=== PATIENT | female | born 1950 | race Caucasian/White ===

== ENCOUNTER 2022-06-04 12:45 | Observation (INO) | payer MEDICARE, OTHER ==
[~2022-06-04] VITALS: Ht 165 cm; Wt 63.5 kg
[2022-06-04 12:45] VITALS: BP 133/115
[2022-06-04] MEDS ORDERED: NALOXONE 0.4 MG/ML 1 ML (NARCAN) VIAL ONE (12:54)
[2022-06-04] MEDS ORDERED: NALOXONE 2 MG/2 ML (NARCAN) SYR ONE (12:57)
[2022-06-04] MEDS ORDERED: NS IV 1000 ML 1,000 ML IV SCH (13:00)
[2022-06-04] MEDS ORDERED: NALOXONE 0.4 MG/ML 1 ML (NARCAN) VIAL IV ONE (13:00)
[2022-06-04 13:01] LABS: BASOPHILS # (AUTO) 0.1 10^3/uL (0.0-0.1); BASOPHILS % (AUTO) 0 % (0-10); EOSINOPHILS % (AUTO) 0 % (0-10); HEMATOCRIT 42 % (35-52); HEMOGLOBIN 14.2 g/dL (11.5-16.0); LYMPHOCYTES # (AUTO) 1.7 10^3/uL (1.0-4.0); LYMPHOCYTES % (AUTO) 7 % (12-44); MEAN CORPUSCULAR HEMOGLOBIN 30 pg (25-34); MEAN CORPUSCULAR HGB CONC 34 g/dL (32-36); MEAN CORPUSCULAR VOLUME 88 fL (80-99); MEAN PLATELET VOLUME 10.3 fL (9.0-12.2); MONOCYTES # (AUTO) 1.7 10^3/uL (0.0-1.0); MONOCYTES % (AUTO) 7 % (0-12); NEUTROPHILS # (AUTO) 20.5 10^3/uL (1.8-7.8); NEUTROPHILS % (AUTO) 85 % (42-75); PLATELET COUNT 510 10^3/uL (130-400); WHITE BLOOD COUNT 24.2 10^3/uL (4.3-11.0)
[2022-06-04 13:02] LABS: BILIRUBIN,URINE 1+ (NEGATIVE); CLARITY,URINE CLEAR; COLOR,URINE YELLOW; GLUCOSE, URINE (UA) NEGATIVE (NEGATIVE); KETONES,URINE 2+ (NEGATIVE); LEUKOCYTE ESTERASE ,URINE NEGATIVE (NEGATIVE); NITRITE,URINE NEGATIVE (NEGATIVE); PROTEIN,URINE 2+ (NEGATIVE)
[2022-06-04 13:09] LABS: AMORPHOUS SEDIMENT,UR FEW AMOR URATES /LPF; BACTERIA,URINE NEGATIVE /HPF; WBC,URINE 0-2 /HPF
[2022-06-04 13:13] LABS: LYMPHOCYTES % (MANUAL) 6 %; MONOCYTES % (MANUAL) 7 %; NEUTROPHILS % (MANUAL) 87 %
[2022-06-04 13:14] LABS: RBC MORPH NORMAL
[2022-06-04 13:16] LABS: ALBUMIN 3.9 GM/DL (3.2-4.5); POTASSIUM 3.4 MMOL/L (3.6-5.0)
[2022-06-04 13:17] LABS: CALCIUM 10.8 MG/DL (8.5-10.1)
[2022-06-04 13:19] LABS: TOTAL PROTEIN 8.2 GM/DL (6.4-8.2)
[2022-06-04 13:21] LABS: BILIRUBIN,TOTAL 0.4 MG/DL (0.1-1.0)
[2022-06-04 13:22] LABS: CREATININE SERUM 1.22 MG/DL (0.60-1.30)
[2022-06-04 13:26] LABS: FIBRIN DEGRADATION PRODUCTS 1.96 UG/ML (0.00-0.49); INR 1.1 (0.8-1.4); PROTHROMBIN TIME PATIENT 14.6 SEC (12.2-14.7)
--- NOTE | 2022-06-04 13:36 | Diagnostic Imaging Report ---
PROCEDURE: CT cervical spine without contrast. TECHNIQUE: Multiple contiguous axial images were obtained through the cervical spine without the use of intravenous contrast. Sagittal and coronal reformations were then performed. Auto Exposure Controls were utilized during the CT exam to meet ALARA standards for radiation dose reduction. INDICATION: Unresponsive, found down. COMPARISON: No prior studies are available for comparison. FINDINGS: Curvature of the cervical spine is normal. There is minimal retrolisthesis of C3 on C4. Multilevel degenerative disc disease is noted with significant disc space narrowing and marginal spurring at all levels. No fractures identified. The prevertebral tissues are normal. Odontoid is intact. IMPRESSION: Cervical spondylosis. No acute bony abnormality is detected. Dictated by: Dictated on workstation # [id number]
--- NOTE | 2022-06-04 13:37 | Diagnostic Imaging Report ---
Indication: Unresponsive. Time of Exam: 1:31 PM No prior studies are available for comparison. The heart is enlarged. There is central congestion but no overt failure. Right hemidiaphragm is elevated. No effusion or pneumothorax is identified. IMPRESSION: Cardiomegaly with central congestion. Dictated by: Dictated on workstation # [id number]
--- NOTE | 2022-06-04 13:48 | Diagnostic Imaging Report ---
Clinical Indication: Patient is unresponsive. Exam: Axial CT scan of the brain without IV contrast with coronal and sagittal reformatted images. Auto Exposure Controls were utilized during the CT exam to meet ALARA standards for radiation dose reduction. Comparison: None Findings: There are large areas of loss of olmedo-white matter distinction and predominantly diffuse low-density involving both cerebral hemispheres in the bilateral ACAs, bilateral MCA regions. There is involvement of the bilateral basal ganglia regions. There is current sparing of the bilateral thalami, some portions of the parietal lobe, occipital lobe and most of the temporal lobe regions. There is no involvement of the cerebellar hemispheres. There is streak artifact limiting evaluation of the brainstem. There is dense vessel appearance involving the anterior circulation [place] of [place]anna which may be related to relative diffuse low-density of the brain parenchyma. There is loss of brain parenchymal sulci. There is no intra-parenchymal hemorrhage, brain herniation or midline shift. There is no hydrocephalus. Basal cisterns are unremarkable. Extracranial soft tissues, skull, and orbits are unremarkable. Paranasal sinuses and mastoid air cells are clear. IMPRESSION: There are findings consistent with acute global hypoxic ischemic large infarcts involving both cerebral hemispheres predominantly involving the FRANCIS and MCA distributions. There is associated mild cerebral edema with loss of sulci noted in these areas. There is no intracranial hemorrhage, brain herniation or midline shift. Results of this report were discussed with Dr. Rajiv James via the telephone on 06/04/2022 1335 hours. Dictated by: Dictated on workstation # [id number]
--- NOTE | 2022-06-04 14:11 | ED Neurological Problem ---
General Chief Complaint: Unresponsive Stated Complaint: CONFUSION Nursing Triage Note: PT PRESENTS TO ED VIA EMS FOR UNRESPONSIVENESS. ACCORDING TO EMS PT FAMILY REPORTS PT HAS BEEN SICK FOR TWO DAYS. EMS REPORTS PT FAMILY STATES THEY HEARD HER SNORING LAST NIGHT AND ASSUMED SHE WAS SLEEPING. LAST KNOWN WELL TIME IS YESTERDAY AROUND 1200. Source: family, EMS Exam Limitations: no limitations History of Present Illness Date Seen by Provider: Jun 04, 2022 Time Seen by Provider: 12:46 Initial Comments This is 72-year-old woman presents to the emergency room via EMS after being found unresponsive by family members at home. Last known well time was sometime yesterday. She had not been feeling well for couple of days. On arrival she is responsive somewhat to pressure or painful stimuli and is maintaining sonorous respirations. She did have a bottle of hydrocodone in the home. Other than not feeling well, she was known to be at her baseline around noon yesterday. There are areas of abrasion and redness on her right side including on the ear and around the clavicle. There is no witnessed trauma. She was hypothermic with a temperature of 33.3 rectally during initial assessment. She has some posturing in extension. There is emesis on her clothing and she has coarse right-sided breath sounds. Allergies and Home Medications Allergies Coded Allergies: No Known Drug Allergies (Unverified , 06/04/22) Patient Home Medication List Home Medication List Reviewed: Yes Review of Systems Review of Systems Constitutional: see HPI Eyes: No Symptoms Reported Ears, Nose, Mouth, Throat: see HPI Respiratory: see HPI Cardiovascular: other (Tachycardia) Gastrointestinal: see HPI Genitourinary: no symptoms reported : No Musculoskeletal: no symptoms reported Skin: see HPI Psychiatric/Neurological: See HPI Endocrine: No Symptoms Reported Hematologic/Lymphatic: No Symptoms Reported Past Ubqppth-Xqmkvs-Rdlrzt Hx Patient Social History Smoking Status: Unknown if Ever Smoked Substance use?: Unable to obtain Alcohol Use?: Unable to obtain Pt feels they are or have been: Unable to obtain Past Medical History Surgery/Hospitalization HX: No medical history available Surgeries: No (Not known) Physical Exam Vital Signs Vital Signs - First Documented 06/04/22 12:45 Temp 33.3 Pulse 128 Resp 24 B/P (MAP) 133/115 (121) Pulse Ox 96 O2 Delivery Nasal Cannula O2 Flow Rate 2.00 Capillary Refill : Greater Than 3 Seconds Height, Weight, BMI Height: '" Weight: lbs. oz. kg; 23.00 BMI Method: General Appearance: WD/WN, other (Minimally responsive) HEENT: PERRL/EOMI (Sluggish pupils) Neck: normal inspection Respiratory: rhonchi, other (Snoring respirations, occasionally tachypnea) Cardiovascular: no edema, no murmur, tachycardia Gastrointestinal: soft; No distended Extremities: normal inspection, no pedal edema Neurologic/Psychiatric: other (Minimally responsive to painful stimuli. Decerebrate posturing. Occasional seizure-like activity. No purposeful movement.) Crainal Nerves: PERRL (Sluggish pupils) Skin: cool, pallor Progress/Results/Core Measures Results/Orders Lab Results Laboratory Tests Test 06/04/22 12:51 06/04/22 12:58 06/04/22 13:43 Range/Units Urine Color YELLOW Urine Clarity CLEAR Urine pH 6.0 5-9 Urine Specific [place]den >=1.030 1.016-1.022 Urine Protein 2+ H NEGATIVE Urine Glucose (UA) NEGATIVE NEGATIVE Urine Ketones 2+ H NEGATIVE Urine Nitrite NEGATIVE NEGATIVE Urine Bilirubin 1+ H NEGATIVE Urine Urobilinogen 0.2 < = 1.0 MG/DL Urine Leukocyte Esterase NEGATIVE NEGATIVE Urine RBC (Auto) 3+ H NEGATIVE Urine RBC 5-10 H /HPF Urine WBC 0-2 /HPF Urine Crystals PRESENT H /LPF Urine Amorphous Sediment FEW DORIAN URATES H /LPF Urine Bacteria NEGATIVE /HPF Urine Casts PRESENT /LPF Urine Hyaline Casts 2-5 H /LPF Urine Mucus NEGATIVE /LPF Urine Culture Indicated NO White Blood Count 24.2 H 4.3-11.0 10^3/uL Red Blood Count 4.81 3.80-5.11 10^6/uL Hemoglobin 14.2 11.5-16.0 g/dL Hematocrit 42 35-52 % Mean Corpuscular Volume 88 80-99 fL Mean Corpuscular Hemoglobin 30 25-34 pg Mean Corpuscular Hemoglobin Concent 34 32-36 g/dL Red Cell Distribution Width 14.0 10.0-14.5 % Platelet Count 510 H 130-400 10^3/uL Mean Platelet Volume 10.3 9.0-12.2 fL Immature Granulocyte % (Auto) 1 % Neutrophils (%) (Auto) 85 H 42-75 % Lymphocytes (%) (Auto) 7 L 12-44 % Monocytes (%) (Auto) 7 0-12 % Eosinophils (%) (Auto) 0 0-10 % Basophils (%) (Auto) 0 0-10 % Neutrophils # (Auto) 20.5 H 1.8-7.8 10^3/uL Lymphocytes # (Auto) 1.7 1.0-4.0 10^3/uL Monocytes # (Auto) 1.7 H 0.0-1.0 10^3/uL Eosinophils # (Auto) 0.0 0.0-0.3 10^3/uL Basophils # (Auto) 0.1 0.0-0.1 10^3/uL Immature Granulocyte # (Auto) 0.2 H 0.0-0.1 10^3/uL Neutrophils % (Manual) 87 % Lymphocytes % (Manual) 6 % Monocytes % (Manual) 7 % Blood Morphology Comment NORMAL Prothrombin Time 14.6 12.2-14.7 SEC INR Comment 1.1 0.8-1.4 Activated Partial Thromboplast Time 29 24-35 SEC D-Dimer 1.96 H 0.00-0.49 UG/ML Sodium Level 142 135-145 MMOL/L Potassium Level 3.4 L 3.6-5.0 MMOL/L Chloride Level 100 98-107 MMOL/L Carbon Dioxide Level 23 21-32 MMOL/L Anion Gap 19 H 5-14 MMOL/L Blood Urea Nitrogen 29 H 7-18 MG/DL Creatinine 1.22 0.60-1.30 MG/DL Estimat Glomerular Filtration Rate 48 BUN/Creatinine Ratio 24 Glucose Level 183 H 70-105 MG/DL Calcium Level 10.8 H 8.5-10.1 MG/DL Corrected Calcium 10.9 H 8.5-10.1 MG/DL Total Bilirubin 0.4 0.1-1.0 MG/DL Aspartate Amino Transf (AST/SGOT) 82 H 5-34 U/L Alanine Aminotransferase (ALT/SGPT) 41 0-55 U/L Alkaline Phosphatase 99 40-136 U/L Troponin I 32.865 *H <0.028 NG/ML Total Protein 8.2 6.4-8.2 GM/DL Albumin 3.9 3.2-4.5 GM/DL Influenza Type A (RT-PCR) Not Detected Not Detecte Influenza Type B (RT-PCR) Not Detected Not Detecte SARS-CoV-2 RNA (RT-PCR) Not Detected Not Detecte My Orders Orders - RAJIV VAZQUEZ MD Cbc With Automated Diff (06/04/22 12:48) Protime With Inr (06/04/22 12:48) Partial Thromboplastin Time (06/04/22 12:48) Comprehensive Metabolic Panel (06/04/22 12:48) Fibrin Degradation Products (06/04/22 12:48) Troponin I Mill[place] (06/04/22 12:48) Ua Culture If Indicated (06/04/22 12:48) Chest 1 View, Ap/Pa Only (06/04/22 12:48) Catheter(Urinary) Insert & Ass 03,15 (06/04/22 12:48) Ekg Tracing (06/04/22 12:48) Nothing By Mouth (06/04/22 Lunch) Accucheck Stat ONCE (06/04/22 12:48) Ed Iv/Invasive Line Start (06/04/22 12:48) Vital Signs Stroke Patient Q15M (06/04/22 12:48) Ct Head Wo-R/O Stroke (06/04/22 12:48) O2 (06/04/22 12:48) Monitor-Rhythm Ecg Trace Only (06/04/22 12:48) Dysphagia Screening Tool Q10MX1 (06/04/22 12:48) Ct Cervical Spine Wo (06/04/22 12:50) Ns Iv 1000 Ml (Sodium Chloride 0.9%) (06/04/22 13:00) Naloxone Injection (Narcan Injection) (06/04/22 13:00) Covid 19 Inhouse Test (06/04/22 12:51) Influenza A And B By Pcr (06/04/22 12:51) Naloxone Injection (Narcan Injection) (06/04/22 12:54) Naloxone Injection (Narcan Injection) (06/04/22 12:57) Manual Differential (06/04/22 12:58) Morphine Injection (Morphine Injection (06/04/22 14:26) Ed Admission (Communication) (06/04/22 14:52) Medications Given in ED Vital Signs/I&O 06/04/22 06/04/22 12:45 12:50 Temp 33.3 Pulse 128 Resp 24 B/P (MAP) 133/115 (121) Pulse Ox 96 100 O2 Delivery Nasal Cannula Nasal Cannula O2 Flow Rate 2.00 2.00 Blood Pressure Mean: 121 Progress Progress Note : Time: 14:47 Progress Note Patient did not respond to serial doses of narcan 0.4 mg, 1 mg and 1 mg. Patient was maintaining respiratory status with nasal trumpet without intubation. CT was obtained demonstrating severe bilateral hypoxic brain injury. I discussed the situation with Dr. Walden, stroke neurologist at [facility]. Prognosis is extremely poor in that this injury is likely incompatible with life. If she were to survive, it is estimated she would have severe persistent brain damage without any higher brain function. Per family, she would not want any aggressive care in this circumstance. Comfort care is being pursued. Patient initially received Versed 2 mg IV when she was having brief seizure-like a ctivity. She later appeared to be in pain and received morphine 4 mg IV. Family is now at bedside with the patient. Case was discussed with Dr. Huitron who is agreeable to admission for comfort care. Diagnostic Imaging Diagonstic Imaging: CT Plain Films/CT/US/NM/MRI: head Comments NAME: ELIZABETH REAVES [facility] REC#: [id number] PT STATUS: REG ER : 1950 PHYSICIAN: RAJIV VAZQUEZ MD ADMIT DATE: 06/04/22/ER Draft Date of Exam:06/04/22 CT HEAD WO-R/O STROKE Clinical Indication: Patient is unresponsive. Exam: Axial CT scan of the brain without IV contrast with coronal and sagittal reformatted images. Auto Exposure Controls were utilized during the CT exam to meet ALARA standards for radiation dose reduction. Comparison: None Findings: There are large areas of loss of olmedo-white matter distinction and predominantly diffuse low-density involving both cerebral hemispheres in the bilateral ACAs, bilateral MCA regions. There is involvement of the bilateral basal ganglia regions. There is current sparing of the bilateral thalami, some portions of the parietal lobe, occipital lobe and most of the temporal lobe regions. There is no involvement of the cerebellar hemispheres. There is streak artifact limiting evaluation of the brainstem. There is dense vessel appearance involving the anterior circulation [place] of [place] which may be related to relative diffuse low-density of the brain parenchyma. There is loss of brain parenchymal sulci. There is no intra-parenchymal hemorrhage, brain herniation or midline shift. There is no hydrocephalus. Basal cisterns are unremarkable. Extracranial soft tissues, skull, and orbits are unremarkable. Paranasal sinuses and mastoid air cells are clear. IMPRESSION: There are findings consistent with acute global hypoxic ischemic large infarcts involving both cerebral hemispheres predominantly involving the FRANCIS and MCA distributions. There is associated mild cerebral edema with loss of sulci noted in these areas. There is no intracranial hemorrhage, brain herniation or midline shift. Results of this report were discussed with Dr. Rajiv James via the telephone on 06/04/2022 1335 hours. Dictated on workstation # [id number] Dict: 06/04/22 1329 Trans: 06/04/22 1347 [id number] [id number] Interpreted by: JEREMIE ROMANO MD Diagonstic Imaging: Xray Plain Films/CT/US/NM/MRI: chest Comments NAME: ELIZABETH REAVES [facility] REC#: [id number] PT STATUS: ADM Onur : 1950 PHYSICIAN: RAJIV VAZQUEZ MD ADMIT DATE: 06/04/22 Signed Date of Exam:06/04/22 CHEST 1 VIEW, AP/PA ONLY Indication: Unresponsive. Time of Exam: 1:31 PM No prior studies are available for comparison. The heart is enlarged. There is central congestion but no overt failure. Right hemidiaphragm is elevated. No effusion or pneumothorax is identified. IMPRESSION: Cardiomegaly with central congestion. Dictated by: Dictated on workstation # [id number] Dict: 06/04/22 1336 Trans: 06/04/22 1603 [id number] [id number] Interpreted by: ROSSY GRAYSON MD Electronically signed by: ROSSY GRAYSON MD 06/04/22 1604 Diagonstic Imaging: CT Plain Films/CT/US/NM/MRI: c-spine Comments NAME: ELIZABETH REAVES MED REC#: [id number] PT STATUS: ADM Onur : 1950 PHYSICIAN: RAJIV VAZQUEZ MD ADMIT DATE: 06/04/22 Signed Date of Exam:06/04/22 CT CERVICAL SPINE WO PROCEDURE: CT cervical spine without contrast. TECHNIQUE: Multiple contiguous axial images were obtained through the cervical spine without the use of intravenous contrast. Sagittal and coronal reformations were then performed. Auto Exposure Controls were utilized during the CT exam to meet ALARA standards for radiation dose reduction. INDICATION: Unresponsive, found down. COMPARISON: No prior studies are available for comparison. FINDINGS: Curvature of the cervical spine is normal. There is minimal retrolisthesis of C3 on C4. Multilevel degenerative disc disease is noted with significant disc space narrowing and marginal spurring at all levels. No fractures identified. The prevertebral tissues are normal. Odontoid is intact. IMPRESSION: Cervical spondylosis. No acute bony abnormality is detected. Dictated by: Dictated on workstation # [id number] Dict: 06/04/22 1330 Trans: 06/04/22 1603 [id number] [id number] Interpreted by: ROSSY GRAYSON MD Electronically signed by: ROSSY GRAYSON MD 06/04/22 1603 Departure Communication (Admissions) Time/Spoke to Admitting Phy: 14:45 Dr. Huitron Impression Primary Impression: Hypoxic brain injury Additional Impressions: Unresponsive Elevated troponin Need for comfort care Disposition: ADMITTED INPATIENT Condition: Critical Admissions Decision to Admit Reason: Admit from ER (General) Decision to Admit/Date: Jun 04, 2022 Time/Decision to Admit Time: 14:45 RAJIV VAZQUEZ MD Jun 04, 2022 14:11
[2022-06-04] MEDS ORDERED: morphine INJ 10 MG/ML 1ML (SYR OR VIAL) IVP STA (14:26)
[2022-06-04] MEDS ORDERED: ACETAMINOPHEN 650 MG SUPP (TYLENOL) PR PRN (16:00)
[2022-06-04] MEDS ORDERED: PROMETHAZINE INJ 25 MG/ML (PHENERGAN) AMP IVP PRN (16:00)
[2022-06-04] MEDS ORDERED: RT-ALBUTEROL/IPRATROPIUM 3 ML (DUONEB) VIAL INH PRN (16:00)
[2022-06-04] MEDS ORDERED: GLYCOPYRROLATE 0.2 MG/ML (ROBINUL) 2 ML VIAL IV PRN (16:00)
[2022-06-04] MEDS ORDERED: SALIVA SUBSTITUTE 60 ML SPRAY(MOUTHKOTE) MM PRN (16:00)
[2022-06-04] MEDS ORDERED: BISACODYL 10 MG SUPP (DULCOLAX) PR PRN (16:00)
[2022-06-04] MEDS ORDERED: LORazepam 1 MG (ATIVAN) TAB SL PRN (16:00)
[2022-06-04] MEDS ORDERED: LORazepam INJ 2 MG/ML (ATIVAN) VIAL IVP PRN (16:00)
[2022-06-04] MEDS ORDERED: morphine INJ 4 MG/ML 1 ML (VIAL/SYRINGE) IV PRN (16:00)
[2022-06-04] MEDS ORDERED: ONDANSETRON 4 MG/2 ML (SDV) Z0FRAN IVP PRN (16:00)
[2022-06-04] MEDS ORDERED: ARTIFICAL TEARS 0.4 ML UNIT DOSE (REFRESH PLUS) OU PRN (16:00)
[2022-06-05] MEDS ORDERED: MIDAZOLAM 5 MG/5 ML (VERSED) VIAL INJ ONE (03:59)
--- NOTE | 2022-06-26 13:23 | Short Stay Summary-Hospitalist ---
History of Present Illness HPI/Chief Complaint Dora Munoz was a 72 year old female who presented to the ER after being found down by family members. She was found to have bilateral strokes with global anoxic brain injury. Source: RN/MD Exam Limitations: clinical condition Date Seen 06/04/22 Time Seen by a Provider: 15:00 Attending Physician PCP Admitting Physician: China Huizar MD Attending Physician: China Huizar MD Referring Physician Date of Admission Jun 04, 2022 at 15:53 Home Medications & Allergies Home Medications Reviewed patient Home Medication Reconciliation performed by pharmacy medication reconciliations wet process technician and/or nursing. Patients Allergies have been reviewed. Allergies Allergies Coded Allergies No Known Drug Allergies (Hqgdurxwza69/8/22) Past Xarasdp-Ywjxni-Uifgnz Hx Patient Social History Tobacco Use?: No Smoking Status: Unknown if Ever Smoked Smokeless Tobacco Frequency: Unknown if Ever Used Use of E-Cig and/or Vaping dev: Unable to obtain Substance use?: Unable to obtain Alcohol Use?: Unable to obtain Pt feels they are or have been: Unable to obtain Immunizations Up To Date Tetanus Booster (TDap): Unknown Current Status status: No status: No Advance Directives: No Communicates: Does Not Communicate Primary Language: Georgian Preferred Spoken Language: Georgian Is interpretation needed?: No Additional sensory deficits: UNRESPONSIVE Review of Systems Constitutional: see HPI Physical Exam Physical Exam Vital Signs Capillary Refill : Greater Than 3 Seconds Height, Weight, BMI Height: '" Weight: lbs. oz. kg; 23.32 BMI Method: General Appearance: Other Results Results/Procedures Labs Patient resulted labs reviewed. Imaging: Reviewed Imaging Report Short Stay Diagnosis Discharge Diagnosis-Short Stay Admission Diagnosis Anoxic brain injury Final Discharge Diagnosis Anoxic brain injury Conclusion Plan Anoxic brain injury Acute ischemic stroke Comfort measures only Diagnosis/Problems Diagnosis/Problems (1) Anoxic brain injury Status: Acute (2) Acute ischemic stroke Status: Acute (3) Comfort measures only status Status: Acute CHINA HUIZAR MD Jun 26, 2022 13:23
== END 2022-06-04 21:50 | disposition expired ==
LOC: EDUNIT# 12:45 → ER 12:46 → UNDOADMOB 14:53 → 4TH 14:53 → UNDODISOB 06-05 04:00
PROVIDERS: ADMIT Internal Medicine; ATTEND Internal Medicine
DX: S06.9XAA Unspecified intracranial injury with loss of consciousness status unknown, initial encounter (principal); X58.XXXA Exposure to other specified factors, initial encounter
CPT/HCPCS: 70450; 71045; 72125; 80053; 81000; 84484; 85007; 85027; 85379; 85610; 85730; 87636; 93005; 96361; 96374; 96375; 96376; 99284; G0378; 36415